=== PATIENT | female | born 1980 | race Caucasian/White ===

== ENCOUNTER 2019-04-01 23:27 | Emergency (ER) | payer OTHER ==
[~2019-04-01] VITALS: Ht 162.6 cm; Wt 59.0 kg
[2019-04-01 23:35] VITALS: BP 123/85
== END 2019-04-01 23:55 | disposition home or self-care (01) ==
LOC: M.ERS 23:27
DX: F41.9 Anxiety disorder, unspecified (principal); F90.9 Attention-deficit hyperactivity disorder, unspecified type; Z98.890 Other specified postprocedural states